=== PATIENT | female | born 1965 | race Caucasian/White ===

== ENCOUNTER 2020-10-12 01:59 | Emergency (ER) | payer BC, OTHER ==
[2020-10-12] MEDS ORDERED: Zofran 4 MG/2 ML VIAL IV ONE (02:34)
[2020-10-12] MEDS ORDERED: Hydromorphone 1 mg/ml Injection IV ONE ×2 (02:34→03:49)
[2020-10-12] MEDS ORDERED: NORCO 5/325 MG PO ONE (02:35)
[2020-10-12] MEDS ORDERED: Hydromorphone 1 mg/ml Injection ONE ×2 (02:39→03:49)
[2020-10-12] MEDS ORDERED: Zofran 4 MG/2 ML VIAL ONE (02:39)
[2020-10-12] MEDS ORDERED: NORCO 5/325 MG ONE (02:39)
[2020-10-12 03:03] LABS: Absolute Neutrophil Ct (ANC) 6.31 (1.4-6.9); BASOPHIL % 0.1 % (0.0-0.4); Basophil (Absolute #) 0.01 (0-0.4); Eosinophil (Absolute #) 0.43 (0-0.5); Hematocrit 34.4 % (35-47); Lymphocyte (Absolute #) 1.05 (1.0-4.6); Lymphocytes % 12.3 % (24.0-44.0); Mean Cell Volume 93.5 fl (78-100); Mean Corpuscular Hemoglobin 29.9 pg (26-32); Mean Platelet Volume 10.2 fl (7.5-11.0); Monocyte (Absolute #) 0.77 (0.0-1.3); Neutrophil % 73.6 % (36.0-66.0); Platelet Count 252 K/mm3 (150-450); Red Blood Count 3.68 M/mm3 (4.1-5.4); Red Cell Distribution Width 13.2 % (11.5-14.0); White Blood Count 8.6 K/mm3 (4.0-10.5)
[2020-10-12 03:09] LABS: ALBUMIN 3.8 g/dL (3.5-5.0); ALKALINE PHOSPHATASE 95 U/L (38-126); ANION GAP 8.4 MEQ/L (5-15); BLOOD UREA NITROGEN 11 mg/dL (7-17); CHLORIDE 102 mmol/L (98-107); Calcium 9.1 mg/dL (8.4-10.2); Carbon Dioxide 31 mmol/L (22-30); Creatinine 1 0.93 mg/dL (0.52-1.04); EST GLOMERULAR FILTRATION RATE > 60.0 ML/MIN; Glucose 111 mg/dL (74-106); Potassium 3.6 mmol/L (3.5-5.1); SGOT/AST 33 U/L (14-36); SGPT/ALT 30 U/L (0-35); SODIUM 138 mmol/L (137-145); Total Protein 6.7 g/dL (6.3-8.2)
--- NOTE | 2020-10-12 03:48 | ERPHSYRPT ---
- History of Present Illness Time Seen by Provider: 10/12/20 02:15 Source: patient, other () Exam Limitations: no limitations Patient Subjective Stated Complaint: pt states "At midnight the pain became too much and became shortness of breath Triage Nursing Assessment: pt came into the er via wheelchair; pt is axo x4; pt is anxious, tearful, crying; pt has new rt knee replacement; states 10/10 pain to rt knee; pt states SOB; tachypnea; clear lung sounds RAKESH; clear heart tone; rt is swollen, red; pt states that she took a norco at 0000; pt states her pain is severe and chest was heavy feeling along with SOB; pt states that she has been elevating rt knee and icing it; states that pt on gets up to use the restroom; pt states that she had low grade tempature of 99.5 at home; vitals wnl Timing/Duration: today Severity: severe Associated Symptoms: shortness of breath, other (Right knee pain), No nausea, No vomiting, No abdominal pain, No cough, No chest pain Allergies/Adverse Reactions: aspartame Allergy (Verified 10/12/20 02:04) Headache Penicillins Allergy (Verified 10/12/20 02:04) Home Medications: Atorvastatin Calcium [Lipitor] 10 mg PO HS 06/10/13 [History] Citalopram Hydrobromide [ceLEXa] 40 mg PO DAILY 06/10/13 [History] Gabapentin 300 mg [Neurontin 300 mg] 1,200 mg PO HS 06/10/13 [History] Lisinopril 10 mg [Zestril 10 MG] 10 mg PO DAILY 06/10/13 [History] Pramipexole Di-HCl [Mirapex] 1.5 mg PO DAILY 11/20/14 [History] Omeprazole [Prilosec] 40 mg PO DAILY 11/25/14 [History] Aspirin 81 mg PO DAILY 03/15/15 [History] Hx Tetanus, Diphtheria Vaccination/Date Given: Yes Hx Influenza Vaccination/Date Given: No Hx Pneumococcal Vaccination/Date Given: No Travel Risk - International Travel Have you traveled outside of the country in past 3 weeks: No - Coronavirus Screening Are you exhibiting any of the following symptoms?: Yes Symptoms: Shortness of Breath Close contact with a COVID-19 positive Pt in past 14-21 Days: No - Vaccine Status Have you recieved a Covid-19 vaccination: No - Review of Systems Constitutional: No Fever, No Chills Respiratory: Dyspnea Cardiac: No Chest Pain, No Orthopnea Abdominal/Gastrointestinal: No Abdominal Pain, No Nausea, No Vomiting Musculoskeletal: Other (Right knee pain) Neurological: No Symptoms Psychological: No Symptoms All Other Systems: Reviewed and Negative - Past Medical History Pertinent Past Medical History: Yes Neurological History: TIA ENT History: No Pertinent History Cardiac History: High Cholesterol, Hypertension Respiratory History: No Pertinent History Endocrine Medical History: No Pertinent History Musculoskeletal History: Arthritis, Osteoarthritis GI Medical History: GERD History: No Pertinent History Psycho-Social History: Depression Female Reproductive Disorders: Fibroids Other Medical History: TIA 2012 - Past Surgical History Past Surgical History: Yes Neuro Surgical History: No Pertinent History Cardiac: No Pertinent History Respiratory: No Pertinent History Gastrointestinal: Cholecystectomy Genitourinary: No Pertinent History Musculoskeletal: Orthopedic Surgery Female Surgical History: Hysterectomy, Tubal Ligation Other Surgical History: carpal tunnel bilat, exploratory lap,d&c, rt knee replacement - Social History Smoking Status: Never smoker Exposure to second hand smoke: No Drug Use: none Patient Lives Alone: No - Female History Hx Now: No - Nursing Vital Signs Nursing Vital Signs: Initial Vital Signs Temperature 98.7 F 10/12/20 02:05 Pulse Rate 108 H 10/12/20 02:05 Respiratory Rate 32 H 10/12/20 02:05 Blood Pressure 129/80 10/12/20 02:05 O2 Sat by Pulse Oximetry 99 10/12/20 02:05 Pain Scale Pain Intensity 10 - Physical Exam General Appearance: mild distress, alert, obese Eye Exam: PERRL/EOMI Ears, Nose, Throat Exam: normal ENT inspection Neck Exam: normal inspection Respiratory Exam: normal breath sounds, lungs clear, airway intact, No chest tenderness, No respiratory distress, No crackles/rales Cardiovascular Exam: regular rate/rhythm, normal heart sounds, normal peripheral pulses, capillary refill <2 sec, No murmur, No friction rub, No gallop Extremity Exam: tenderness, No pedal edema Neurologic Exam: alert, oriented x 3, normal mood/affect SpO2: 95 - Course Nursing assessment & vital signs reviewed: Yes EKG Interpreted by Me: RATE, Sinus Rhythm, NORMAL AXIS, NORMAL INTERVALS, NORMAL QRS, NORMAL ST-T - CT Exams Chest CT Interpretation: Tele-radiologist Report (No acute findings) - Radiology Ultrasound Exam Venous Lower Extremity Ultrasound: Other (Tech reporting no evidence of DVT) Ordered Tests: Active Orders 24 hr Category Date Time Status EKG-ER Only STAT Care 10/12/20 02:34 Active CHEST WITH CONTRAST [CT] Stat Exams 10/12/20 02:32 Taken Ultrasound Unilateral Extremities [VENOUS UNILAT/ Exams 10/12/20 03:13 Taken LIMITED EXTREMIT] [US] Stat BNP [NT PRO BNP] Stat Lab 10/12/20 02:45 Completed CBC W DIFF Stat Lab 10/12/20 02:45 Completed CMP Stat Lab 10/12/20 02:45 Completed TROPONIN Q3H Lab 10/12/20 02:45 Ordered TROPONIN Q3H Lab 10/12/20 05:45 Ordered TROPONIN Q3H Lab 10/12/20 08:45 Ordered TROPONIN Q3H Lab 10/12/20 11:45 Ordered TROPONIN Q3H Lab 10/12/20 14:45 Ordered TROPONIN Q3H Lab 10/12/20 17:45 Ordered TROPONIN Q3H Lab 10/12/20 20:45 Ordered TROPONIN Q3H Lab 10/12/20 23:45 Ordered Medication Summary Discontinued Medications Generic Name Dose Route Start Last Admin Trade Name Freq PRN Reason Stop Dose Admin Hydrocodone Bitart/Acetaminophen 1 tab 10/12/20 02:35 10/12/20 02:40 [place] 5/325 Mg PO 10/12/20 02:36 1 tab STAT ONE Administration Hydrocodone Bitart/Acetaminophen Confirm 10/12/20 02:39 [place] 5/325 Mg Administered 10/12/20 02:40 Dose 1 tab .ROUTE .STK-MED ONE Hydromorphone HCl 0.5 mg 10/12/20 02:34 10/12/20 02:40 Hydromorphone 1 Mg/Ml Injection IV 10/12/20 02:35 0.5 mg STAT ONE Administration Hydromorphone HCl Confirm 10/12/20 02:39 Hydromorphone 1 Mg/Ml Injection Administered 10/12/20 02:40 Dose 1 mg .ROUTE .STK-MED ONE Hydromorphone HCl 0.5 mg 10/12/20 03:49 10/12/20 03:52 Hydromorphone 1 Mg/Ml Injection IV 10/12/20 03:50 0.5 mg STAT ONE Administration Hydromorphone HCl Confirm 10/12/20 03:49 Hydromorphone 1 Mg/Ml Injection Administered 10/12/20 03:50 Dose 1 mg .ROUTE .STK-MED ONE Ketorolac Tromethamine 30 mg 10/12/20 03:50 10/12/20 03:51 Toradol 30 Mg Injection IV 10/12/20 03:51 30 mg STAT ONE Administration Ketorolac Tromethamine Confirm 10/12/20 03:50 Toradol 30 Mg Injection Administered 10/12/20 03:51 Dose 30 mg .ROUTE .STK-MED ONE Ondansetron HCl 4 mg 10/12/20 02:34 10/12/20 02:40 Zofran 4 Mg/2 Ml Vial IV 10/12/20 02:35 4 mg STAT ONE Administration Ondansetron HCl Confirm 10/12/20 02:39 Zofran 4 Mg/2 Ml Vial Administered 10/12/20 02:40 Dose 4 mg .ROUTE .STK-MED ONE Lab/Rad Data: Laboratory Result Diagrams 10/12/20 02:45 10/12/20 02:45 Laboratory Results 10/12/20 10/12/20 10/12/20 Range/Units 02:45 02:45 02:45 WBC 8.6 (4.0-10.5) K/mm3 RBC 3.68 L (4.1-5.4) M/mm3 Hgb 11.0 L (12.0-16.0) gm/dl Hct 34.4 L (35-47) % MCV 93.5 (78-100) fl MCH 29.9 (26-32) pg MCHC 32.0 (32-36) g/dl RDW 13.2 (11.5-14.0) % Plt Count 252 (150-450) K/mm3 MPV 10.2 (7.5-11.0) fl Gran % 73.6 H (36.0-66.0) % Eos # (Auto) 0.43 (0-0.5) Absolute Lymphs (auto) 1.05 (1.0-4.6) Absolute Monos (auto) 0.77 (0.0-1.3) Lymphocytes % 12.3 L (24.0-44.0) % Monocytes % 9.0 (0.0-12.0) % Eosinophils % 5.0 (0.00-5.0) % Basophils % 0.1 (0.0-0.4) % Absolute Granulocytes 6.31 (1.4-6.9) Basophils # 0.01 (0-0.4) Sodium 138 (137-145) mmol/L Potassium 3.6 (3.5-5.1) mmol/L Chloride 102 (98-107) mmol/L Carbon Dioxide 31 H (22-30) mmol/L Anion Gap 8.4 (5-15) MEQ/L BUN 11 (7-17) mg/dL Creatinine 0.93 (0.52-1.04) mg/dL Estimated GFR > 60.0 ML/MIN Glucose 111 H (74-106) mg/dL Calcium 9.1 (8.4-10.2) mg/dL Total Bilirubin 0.90 (0.2-1.3) mg/dL AST 33 (14-36) U/L ALT 30 (0-35) U/L Alkaline Phosphatase 95 (38-126) U/L NT-Pro-B Natriuret Pep 323 (0-900) pg/mL Serum Total Protein 6.7 (6.3-8.2) g/dL Albumin 3.8 (3.5-5.0) g/dL - Progress Progress: improved Progress Note: 10/12/20 04:14 The patient was reassessed to find that her pain is now under control after receiving a total of 1 mg of Dilaudid, 1 tablet of 5-325 mg of [place], and 30 mg of IV Toradol. She had some hypoxia after receiving the 0.5 mg of Dilaudid as a second dose and is currently on oxygen. Once her oxygen is weaned she can be discharged home. Counseled pt/family regarding: lab results, diagnosis, need for follow-up, rad results - Departure Departure Disposition: Home Clinical Impression: Postoperative pain of right knee Condition: Stable Critical Care Time: No Referrals: PIERO MARISCAL [Primary Care Provider] - Instructions: Postoperative Pain (DC) Additional Instructions: You can increase your [place] dose to 2 tablets at most. Take anywhere between 1 to 2 tablets as needed every 4-6 hours for pain. Also please take your stool softeners as prescribed to prevent opiate-induced constipation. Please contact your orthopedic surgeon first thing in the morning for additional instructions and/or otherwise follow-up as you reported this coming Monday. Urgency dep artment if you develop a fever, specifically an oral temperature of 100.4 Fahrenheit or greater or if you develop worsening pain, redness or swelling despite taking your pain medications.
[2020-10-12] MEDS ORDERED: TORAdol 30 mg Injection IV ONE (03:50)
[2020-10-12] MEDS ORDERED: TORAdol 30 mg Injection ONE (03:50)
[2020-10-12 04:17] VITALS: BP 120/76; PULSE 79; O2SAT 96
--- NOTE | 2020-10-12 08:37 | XRAY ---
Indication: Dyspnea on exertion. Status post knee replacement October 09, 2020. Multiple contiguous axial images obtained through the chest using 100 cc Isovue 370 contrast and PE protocol. Comparison: None There is good opacification of the pulmonary arteries to include the lobar and segmental branches. No pulmonary embolus. Heart is not enlarged. Aorta is normal course and caliber. No pathologic mediastinal/hilar lymphadenopathy. Lungs demonstrate minimal dependent atelectasis. No suspicious pulmonary mass, infiltrate, or effusion. Bony thorax intact with minimal/mild degenerative changes throughout the spine. Limited upper abdomen demonstrate fatty liver and cholecystectomy. Impression: Negative pulmonary embolus. No acute cardiopulmonary abnormalities. Incidental fatty liver. Comment: Preliminary interpretation was made by [facility]. No critical discrepancy.
--- NOTE | 2020-10-12 08:37 | XRAY ---
Indication: Right knee pain. Status post knee replacement surgery October 09, 2020. Two-dimensional sonogram and color Doppler imaging of the major venous vessels of the right leg was performed. Comparison: None No thrombus seen in the examined deep venous vessels of the right leg including greater saphenous vein. Veins demonstrate normal compressibility. Venous waveforms are normal with and without augmentation. Impression: Right leg negative for DVT. Comment: Preliminary report was given.
== END 2020-10-12 04:31 | disposition home or self-care (01) ==
LOC: ED 01:59
DX: G89.18 Other acute postprocedural pain (principal); Z96.651 Presence of right artificial knee joint; M25.561 Pain in right knee; R06.02 Shortness of breath; I10 Essential (primary) hypertension; M19.90 Unspecified osteoarthritis, unspecified site
CPT/HCPCS: 36000; 36415; 71260; 80053; 83880; 84484; 85025; 93005; 93971; 96374; 99284; J1170; J1885; J2405; A9270-GY

== ENCOUNTER 2023-11-28 15:57 | Emergency (ER) | payer OTHER ==
[2023-11-28 16:14] VITALS: BP 151/86; PULSE 92; RESP 18; TEMP 95.2; O2SAT 95
--- NOTE | 2023-11-28 16:31 | ERPHSYRPT ---
- History of Present Illness Time Seen by Provider: 11/28/23 16:10 Source: patient Exam Limitations: no limitations Patient Subjective Stated Complaint: Finger injury Triage Nursing Assessment: Patient ambulated back to ED and transferred self to bed. Patient A+O X 3. Patient's skin Physician History: 58-year-old female presents to our ED for evaluation of some pain and swelling to her left index finger. Patient was working. Patient informed her boss who advised her to come to our ED for an evaluation. No trauma. Patient has history of arthritis. Patient only experiences discomfort with palpation. No pain at rest. No associated chest pain or shortness of breath. No nausea vomiting or diaphoresis. Patient has no systemic manifestations associated with her current presentation. Patient voices no other complaints or concerns at this time. Portions of this note were created with voice recognition technology. There may be grammatical, spelling, punctuation or sound alike errors Patient declined pain medication. Portions of this note were created with voice recognition technology. There may be grammatical, spelling, punctuation or sound alike errors Timing/Duration: today Severity: mild Associated Symptoms: denies symptoms Allergies/Adverse Reactions: aspartame Allergy (Verified 11/28/23 16:05) Headache Penicillins Allergy (Verified 11/28/23 16:05) Home Medications: Atorvastatin Calcium [Lipitor] 10 mg PO HS 06/10/13 [History] Citalopram Hydrobromide [ceLEXa] 40 mg PO DAILY 06/10/13 [History] Lisinopril 10 mg [Zestril 10 MG] 10 mg PO DAILY 06/10/13 [History] Pramipexole Di-HCl [Mirapex] 1.5 mg PO DAILY 11/20/14 [History] Omeprazole [Prilosec] 40 mg PO DAILY 11/25/14 [History] RX: Aspirin 81 mg PO DAILY 03/15/15 [History] Hx Tetanus, Diphtheria Vaccination/Date Given: Yes Hx Influenza Vaccination/Date Given: No Hx Pneumococcal Vaccination/Date Given: No Immunizations Up to Date: Yes Travel Risk - International Travel Have you traveled outside of the country in past 3 weeks: No - Emerging Infectious Disease Are you exhibiting symptoms associated with any current EIDs: No - Review of Systems Constitutional: No Symptoms, No Fever, No Chills Eyes: No Symptoms Ears, Nose, & Throat: No Symptoms Respiratory: No Symptoms, No Cough, No Dyspnea Cardiac: No Symptoms, No Chest Pain, No Edema, No Syncope Abdominal/Gastrointestinal: No Symptoms, No Abdominal Pain, No Nausea, No Vomiting, No Diarrhea Genitourinary Symptoms: No Symptoms, No Dysuria Musculoskeletal: No Symptoms, No Back Pain, No Neck Pain Skin: No Symptoms, No Rash Neurological: No Symptoms, No Dizziness, No Focal Weakness, No Sensory Changes Psychological: No Symptoms Endocrine: No Symptoms Hematologic/Lymphatic: No Symptoms All Other Systems: Reviewed and Negative - Past Medical History Pertinent Past Medical History: Yes Neurological History: Stroke ENT History: No Pertinent History Cardiac History: Hypertension Respiratory History: No Pertinent History Endocrine Medical History: No Pertinent History Musculoskeletal History: Osteoarthritis GI Medical History: GERD History: No Pertinent History Psycho-Social History: Depression Female Reproductive Disorders: Fibroids Other Medical History: CVA 2012, 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 - Past Surgical History Past Surgical History: Yes Neuro Surgical History: No Pertinent History Cardiac: No Pertinent History Respiratory: No Pertinent History Gastrointestinal: Cholecystectomy Genitourinary: No Pertinent History Musculoskeletal: Orthopedic Surgery Female Surgical History: Hysterectomy, Tubal Ligation Other Surgical History: carpal tunnel bilat, exploratory lap,d&c, rt knee replacement - Social History Smoking Status: Never smoker Exposure to second hand smoke: No Drug Use: none Patient Lives Alone: No - Nursing Vital Signs Nursing Vital Signs: Initial Vital Signs Temperature 95.2 F 11/28/23 16:07 Pulse Rate 92 H 11/28/23 16:07 Respiratory Rate 18 11/28/23 16:07 Blood Pressure 151/86 11/28/23 16:07 O2 Sat by Pulse Oximetry 95 11/28/23 16:07 Pain Scale Pain Intensity 0 - Physical Exam General Appearance: no apparent distress, alert Eye Exam: PERRL/EOMI, eyes nml inspection Ears, Nose, Throat Exam: normal ENT inspection, moist mucous membranes Neck Exam: normal inspection, full range of motion Respiratory Exam: normal breath sounds, airway intact, No respiratory distress Cardiovascular Exam: regular rate/rhythm, normal peripheral pulses Gastrointestinal/Abdomen Exam: soft, normal bowel sounds, No tenderness, No mass Back Exam: normal inspection, normal range of motion, No CVA tenderness, No vertebral tenderness Extremity Exam: normal inspection, normal range of motion, pelvis stable, other (Some bruising to the medial aspect of the left index finger. Mild swelling. Involved digits neurovascular tact distally compartments are soft cap refill less than 2 seconds. Radial pulse palpable. Fingers warm pink well-perfused) Neurologic Exam: alert, oriented x 3, cooperative, normal mood/affect, sensation nml, No motor deficits Skin Exam: normal color, warm, dry, No rash Lymphatic Exam: No adenopathy SpO2 Interpretation: normal SpO2: 95 O2 Delivery: Room Air - Course Nursing assessment & vital signs reviewed: Yes - Radiology Exams Hand X-ray Interpretation: Teleradiologist Report (IP degenerative changes, first metacarpal arthritis with heterotopic ossification) Ordered Tests: Active Orders 24 hr Category Date Time Status HAND (MINIMUM 3 VIEWS) Stat Exams 11/28/23 16:12 Completed - Progress Progress: improved Progress Note: 58-year-old female presents to the emergency department for evaluation of pain to her left index finger. Physical exam reveals some pain at the left index finger. Some deformity observed from arthritis. X-ray shows arthritic changes. No acute fractures or dislocations. Patient declined pain medication. No indication for further workup. Will refer patient to orthopedics for further evaluation. Patient voices no other complaints or concerns at this time. Portions of this note were created with voice recognition technology. There may be grammatical, spelling, punctuation or sound alike errors Complexity problem addressed is moderate acute complicated. No critical care time. Complexity data reviewed and analyzed is moderate. Test ordered chest reviewed results analyzed and correlated clinically with history and physical exam. Risk of complication and or risk of morbidity/mortality is low. Vital stable. Time spent to discharge patient is approximately 10 minutes. Plan of care established for shared decision making. No social determinants of health present impede follow-up. Patient given referral to orthopedic clinic for follow-up. Portions of this note were created with voice recognition technology. There may be grammatical, spelling, punctuation or sound alike errors 11/28/23 17:25 Counseled pt/family regarding: diagnosis, need for follow-up, rad results - Departure Departure Disposition: Home Clinical Impression: Finger pain, Arthritis of finger, Heterotopic ossification first metacarpa Condition: Stable Critical Care Time: No Referrals: MARILEE PEARSON [employer] [Primary Care Provider] - Follow up/PCP as directed Additional Instructions: Discharge/Care Plan STACIEGAY WALTON was seen on 11/28/23 in the Emergency Room. The patient was counseled regarding Diagnosis,Lab results, Imaging studies, need for follow up and when to return to the Emergency Room. Prescriptions given: Discharge Note I have spoken with the patient and/or caregivers. I have explained the patient's condition, diagnosis and treatment plan based on the information available to me at this time. I have answered the patient's and/or caregiver's questions and addressed any concerns. The patient and/or caregivers have as good understanding of the patient's diagnosis, condition and treatment plan as can be expected at this point. The vital signs have been stable. The patient's condition is stable and appropriate for discharge from the emergency department. The patient will pursue further outpatient evaluation with the primary care physician or other designated or consulting physician as outlined in the discharge instructions. The patient and/or caregivers are agreeable to this plan of care and follow-up instructions have been explained in detail. The patient and/or caregivers have received these instruction. The patient/and or caregivers are aware that any significant change in condition or worsening of symptoms should prompt an immediate return to this or the closest emergency department or call 911. Outpatient Orders: Ortho Referral Time Frame: 1 Day, Facility: [facility], Location: [facility]
--- NOTE | 2023-11-28 16:55 | XRAY ---
Indication: Pain index finger. Comparison: December 25, 2009 3 view left hand demonstrates new mild/moderate degenerative changes all IP joints, greatest 2nd-4th DIP. Also new advanced degenerative changes 1st metacarpal multangular articulation with heterotopic ossifications. No other bony, articular, or soft tissue abnormalities.
== END 2023-11-28 17:39 | disposition home or self-care (01) ==
LOC: ED 15:57
DX: M19.042 Primary osteoarthritis, left hand (principal); M61.48 Other calcification of muscle, other site; M79.645 Pain in left finger(s); I10 Essential (primary) hypertension; Z79.899 Other long term (current) drug therapy
CPT/HCPCS: 73130; 99282

== ENCOUNTER 2024-02-02 11:33 | Emergency (ER) | payer OTHER ==
[2024-02-02] MEDS ORDERED: Epinephrine Preservative Free 1 MG/ML ONE (11:50)
[2024-02-02] MEDS ORDERED: BENADRYL 50 MG/ML ONE (11:51)
[2024-02-02] MEDS: Epinephrine Preservative Free 1 MG/ML SQ ONE (11:51)
[2024-02-02] MEDS ORDERED: Sterile H2O 10 ml IJ ONE (11:51)
[2024-02-02] MEDS ORDERED: solu-MEDROL ONE (11:51)
[2024-02-02] MEDS ORDERED: Sodium Chloride 0.9% 1000 ML 1,000 ML ONE (11:52)
[2024-02-02] MEDS: Sodium Chloride 0.9% 1000 ML 1,000 ML IV STA (11:54)
[2024-02-02] MEDS: BENADRYL 50 MG/ML IV ONE (11:55)
[2024-02-02] MEDS: solu-MEDROL 125 MG, Sterile H2O 10 ml 2 ML IV ONE (11:56)
[2024-02-02 11:57] LABS: Absolute Neutrophil Ct (ANC) 3.24 x10^3/uL (1.56-6.13); BASOPHIL % 0.6 % (0.1-1.2); Basophil (Absolute #) 0.03 x10^3/uL (0.01-0.08); Eosinophil % 5.3 % (0.7-5.8); Eosinophil (Absolute #) 0.28 x10^3/uL (0.04-0.36); Hematocrit 40.1 % (34.1-44.9); Hemoglobin 13.3 g/dL (11.2-15.7); IMMATURE GRAN # 0.02 x10^3u/L (0.001-0.031); IMMATURE GRAN % 0.4 % (0.001-0.429); Lymphocyte (Absolute #) 1.16 x10^3/uL (1.18-3.74); Mean Cell Volume 91.3 fL (79.4-94.8); Mean Corpuscular Hemoglobin 30.3 pg (25.6-32.2); Mean Corpuscular Hgb Concent. 33.2 g/dL (32.2-35.5); Mean Platelet Volume 9.3 fL (9.4-12.3); Monocyte (Absolute #) 0.55 x10^3/uL (0.24-0.86); Monocytes % 10.4 % (4.7-12.5); Neutrophil % 61.3 % (34.0-71.1); Platelet Count 220 x10^3/uL (182-369); Red Blood Count 4.39 x10^6/uL (3.93-5.22); Red Cell Distribution Width 12.6 % (11.7-14.4); White Blood Count 5.3 x10^3/uL (3.98-10.04)
[2024-02-02 12:08] VITALS: RESP 18; TEMP 97
[2024-02-02 12:10] LABS: ANION GAP 12.6 MEQ/L (5-15); Calcium 9.2 mg/dL (8.4-10.2); Creatinine 1 1.04 mg/dL (0.52-1.04); EST GLOMERULAR FILTRATION RATE 62.7 ML/MIN; Potassium 4.2 mmol/L (3.5-5.1)
[2024-02-02 13:14] VITALS: BP 105/76; PULSE 73
--- NOTE | 2024-02-02 13:14 | ERPHSYRPT ---
- History of Present Illness Time Seen by Provider: 02/02/24 11:36 Source: patient Exam Limitations: no limitations Patient Subjective Stated Complaint: pt here for bee sting to face at about 0830 today she took benadryl at home. she co facial swelling, and itchy throat, Triage Nursing Assessment: pt alert, sent from clinic, resp easy, skin w/d/p, no drooling, has facial swelling, eyes swollen shut, Physician History: Patient was sent over from [facility] for bee sting to the face. Around 8:30 AM the patient was stung multiple times in the face. She typically is not allergic to bees that she knows of. Patient has some facial swelling, "throat itchiness". Therefore, was sent over here via [facility]. She has no shortness of breath, other systemic swelling or redness. Redness is only isolated to the face. Allergies/Adverse Reactions: aspartame Allergy (Verified 02/02/24 11:42) Headache Penicillins Allergy (Verified 02/02/24 11:42) Home Medications: Atorvastatin Calcium [Lipitor] 10 mg PO HS 06/10/13 [History] Lisinopril 10 mg [Zestril 10 MG] 10 mg PO DAILY 06/10/13 [History] Pramipexole Di-HCl [Mirapex] 1.5 mg PO DAILY 11/20/14 [History] Aspirin 81 mg PO DAILY 03/15/15 [History] Furosemide 40 mg [Lasix 40 MG] 40 mg PO DAILY 02/02/24 [History] PANTOPRAZOLE 40 mg Tablet [Protonix 40MG Tablet] 40 mg PO QAM 02/02/24 [History] Trazodone HCl 50 mg [Desyrel 50 mg] 50 mg PO DAILY 02/02/24 [History] Hx Tetanus, Diphtheria Vaccination/Date Given: Yes Hx Influenza Vaccination/Date Given: No Hx Pneumococcal Vaccination/Date Given: No Immunizations Up to Date: Yes Travel Risk - International Travel Have you traveled outside of the country in past 3 weeks: No - Emerging Infectious Disease Are you exhibiting symptoms associated with any current EIDs: No - Past Medical History Pertinent Past Medical History: Yes Neurological History: Stroke ENT History: No Pertinent History Cardiac History: High Cholesterol, Hypertension Respiratory History: No Pertinent History Endocrine Medical History: No Pertinent History Musculoskeletal History: Osteoarthritis GI Medical History: GERD History: No Pertinent History Psycho-Social History: Depression Female Reproductive Disorders: Fibroids Other Medical History: CVA 2013, 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 - Past Surgical History Past Surgical History: Yes Neuro Surgical History: No Pertinent History Cardiac: No Pertinent History Respiratory: No Pertinent History Gastrointestinal: Cholecystectomy Genitourinary: No Pertinent History Musculoskeletal: Orthopedic Surgery Female Surgical History: Hysterectomy, Tubal Ligation Other Surgical History: carpal tunnel bilat, exploratory lap,d&c, rt knee rep lacement - Social History Smoking Status: Never smoker Exposure to second hand smoke: No Drug Use: none Patient Lives Alone: No - Social Determinants of Health Will the patient participate in the screening: Yes Do you worry about a steady place to live?: No Do you have any problems with any of the following?: No known problems In the past 12 months,have you had to go without utilities?: No Transportation Issues: No Has anyone in your support network made you feel unsafe?: No Have you or anyone in your house had to go without enough: No - Nursing Vital Signs Nursing Vital Signs: Initial Vital Signs O2 Sat by Pulse Oximetry 95 02/02/24 11:47 Pain Scale Pain Intensity 0 - Physical Exam SpO2 Interpretation: normal SpO2: 96 Comments: 02/02/24 13:11 Review of Systems Constitutional: Negative for fever. HENT: Negative for congestion. Respiratory: Negative for shortness of breath. Cardiovascular: Negative for chest pain. Gastrointestinal: Negative for abdominal pain. Genitourinary: Negative for dysuria. Musculoskeletal: Negative for back pain. Skin: Negative for rash. Neurological: Negative for headaches. Psychiatric/Behavioral: Negative for behavioral problems. All other systems reviewed and are negative. Physical Exam Vitals signs and nursing note reviewed. Constitutional: Appearance: Patient is well-developed. HENT: Head: Normocephalic and atraumatic. Eyes: Conjunctiva/sclera: Conjunctivae normal. Neck: Musculoskeletal: Normal range of motion. Trachea: No tracheal deviation. Cardiovascular: Rate and Rhythm: Normal rate. Pulmonary: Effort: Pulmonary effort is normal. No respiratory distress. Abdominal: Palpations: Abdomen is soft. Musculoskeletal: General: No deformity. Skin: General: Skin is warm and dry. Neurological/ Psychiatric: Mental Status: Mental status, behavior, interaction with environment is appropriate for patient's age and condition Facial swelling, bilateral eye edema. Some areas of patchy redness. No obvious oral airway swelling. No trismus, able to fully extend neck, normal range of motion of neck without pain. Uvula is midline, no swelling of the mouth, noraml oropharynx. No exudate, no signs of meningitis, no floor of mouth swelling, no hot potato voice on exam. No buccal swelling, no gum bleeding, no signs of tooth abscess/infection. - Course Nursing assessment & vital signs reviewed: Yes Ordered Tests: Active Orders 24 hr Category Date Time Status EKG-ER Only STAT Care 02/02/24 11:41 Active IV Insertion STAT Care 02/02/24 11:41 Active BMP Stat Lab 02/02/24 11:54 Completed CBC W DIFF Stat Lab 02/02/24 11:54 Completed Medication Summary Discontinued Medications Generic Name Dose Route Start Last Admin Trade Name Freq PRN Reason Stop Dose Admin Methylprednisolone Sodium 0 mg 02/02/24 11:41 02/02/24 11:56 Succinate 125 mg/ Sterile IV 02/02/24 11:42 125 mg Water 2 ml STAT ONE Administration Diphenhydramine HCl 25 mg 02/02/24 11:41 02/02/24 11:55 Diphenhydramine Hcl 50 Mg/Ml Vial IV 02/02/24 11:42 25 mg STAT ONE Administration Diphenhydramine HCl Confirm 02/02/24 11:51 Diphenhydramine Hcl 50 Mg/Ml Vial Administered 02/02/24 11:52 Dose 50 mg .ROUTE .STK-MED ONE Epinephrine HCl 0.3 mg 02/02/24 11:41 02/02/24 11:51 Epinephrine 1 Mg/1 Ml Pf Amp 1 Mg/Ml Ml SQ 02/02/24 11:42 0.3 mg STAT ONE Administration Epinephrine HCl Confirm 02/02/24 11:50 Epinephrine 1 Mg/1 Ml Pf Amp 1 Mg/Ml Ml Administered 02/02/24 11:51 Dose 1 mg .ROUTE .STK-MED ONE Sodium Chloride 1,000 mls @ 999 mls/hr 02/02/24 11:41 02/02/24 12:57 Sodium Chloride 0.9% 1000 Ml IV 02/02/24 12:41 Infused .Q1H1M STA Infusion Sodium Chloride Confirm 02/02/24 11:52 Sodium Chloride 0.9% 1000 Ml Administered 02/02/24 11:53 Dose 1,000 mls @ ud .ROUTE .STK-MED ONE Methylprednisolone Sodium Succinate Confirm 02/02/24 11:51 Methylprednis Sod Succ 125 Mg/2 Ml Vial Administered 02/02/24 11:52 Dose 125 mg .ROUTE .STK-MED ONE Sterile Water Confirm 02/02/24 11:51 Water For Injection,Sterile 10 Ml Vial Administered 02/02/24 11:52 Dose 10 ml IJ .STK-MED ONE Lab/Rad Data: Laboratory Result Diagrams 02/02/24 11:54 02/02/24 11:54 Laboratory Results 02/02/24 02/02/24 Range/Units 11:54 11:54 WBC 5.3 (3.98-10.04) x10^3/uL RBC 4.39 (3.93-5.22) x10^6/uL Hgb 13.3 (11.2-15.7) g/dL Hct 40.1 (34.1-44.9) % MCV 91.3 (79.4-94.8) fL MCH 30.3 (25.6-32.2) pg MCHC 33.2 (32.2-35.5) g/dL RDW 12.6 (11.7-14.4) % Plt Count 220 (182-369) x10^3/uL MPV 9.3 L (9.4-12.3) fL Gran % 61.3 (34.0-71.1) % Immature Gran % (Auto) 0.4 (0.001-0.429) % Nucleat RBC Rel Count 0.0 (0.00-0.2) % Eos # (Auto) 0.28 (0.04-0.36) x10^3/uL Immature Gran # (Auto) 0.02 (0.001-0.031) x10^3u/L Absolute Lymphs (auto) 1.16 L (1.18-3.74) x10^3/uL Absolute Monos (auto) 0.55 (0.24-0.86) x10^3/uL Absolute Nucleated RBC 0.00 (0.00-0.012) x10^3u/L Lymphocytes % 22.0 (19.3-51.7) % Monocytes % 10.4 (4.7-12.5) % Eosinophils % 5.3 (0.7-5.8) % Basophils % 0.6 (0.1-1.2) % Absolute Granulocytes 3.24 (1.56-6.13) x10^3/uL Basophils # 0.03 (0.01-0.08) x10^3/uL Sodium 140 (135-145) mmol/L Potassium 4.2 (3.5-5.1) mmol/L Chloride 106 (98-107) mmol/L Carbon Dioxide 25 (22-30) mmol/L Anion Gap 12.6 (5-15) MEQ/L BUN 27 H (7-17) mg/dL Creatinine 1.04 (0.52-1.04) mg/dL Estimated GFR 62.7 ML/MIN Glucose 105 (74-106) mg/dL Calcium 9.2 (8.4-10.2) mg/dL - Progress Progress: improved Progress Note: 02/02/24 13:17 We will treat with IM epinephrine given the scratchy throat, IV placed, Benadryl, steroids, fluids, basic labs. 02/02/24 14:17 Patient observed for over 2 hours in the ER. She does look much improved. She states that her throat is improved. She has no signs of airway involvement at this point in time. Swelling has gone down her face. 97% on room air, no tachycardia. Patient's is at bedside. I did recommend additional time of observation in the emergency department as the half-life of epinephrine is 4 to 6 hours. The patient and her were insistent that they would like to go home now and do home observation. They would prefer this over being observed in the emergency department. I did explain the risks and benefits of home observation versus being watched here. They did state they would prefer to do home observation. I did explain that she should not drive today due to taking Benadryl. He will watch her closely over the next 24 to 48 hours. Return here sooner for any new or changing symptoms. I did write a prescription for an EpiPen and a Medrol Dosepak going home. Return here sooner as above. Counseled pt/family regarding: lab results, diagnosis, need for follow-up - Departure Departure Disposition: Home Clinical Impression: Bee sting, Allergic reaction Condition: Stable Critical Care Time: No Referrals: MARILEE PEARSON FNP [Primary Care Provider] - Follow up/PCP as directed Instructions: Insect bites and stings, Insect Bites and Stings ED Prescriptions: EPINEPHrine [Epipen 2-Hill] 0.3 mg IJ HS PRN PRN 1 Days #1 cap PRN Reason: Allergies Methylprednisolone Packet [Medrol Dosepack] 4 mg PO UD #1 packet
[2024-02-02 13:15] VITALS: O2SAT 96
== END 2024-02-02 14:27 | disposition home or self-care (01) ==
LOC: ED 11:33
DX: T63.441A Toxic effect of venom of bees, accidental (unintentional), initial encounter (principal); R22.0 Localized swelling, mass and lump, head; E78.5 Hyperlipidemia, unspecified; I10 Essential (primary) hypertension; Z79.52 Long term (current) use of systemic steroids; Z79.899 Other long term (current) drug therapy
CPT/HCPCS: 36000; 36415; 80048; 85025; 93005; 96360; 96372; 96374; 96375; 99284; J0171; J1200; J2919